=== PATIENT | female | born 1940 | race Caucasian/White ===

== ENCOUNTER 2024-01-02 18:13 | Emergency (ER) | payer SELFPAY ==
[2024-01-02 18:40] LABS: BASOPHILS PERCENT AUTO 0.1 % (0.0-1.0); EOSINOPHILS PERCENT AUTO 2.5 % (1.0-3.0); HEMATOCRIT 37.2 % (37.0-47.0); MEAN CORPUSCULAR HEMOGLOBIN 28.8 pg (27.0-34.0); MEAN CORPUSCULAR HGB CONC 32.3 g/dL (33.0-35.0); MEAN CORPUSCULAR VOLUME 89.2 fL (80-100); MONOCYTES PERCENT AUTO 11.1 % (2-8); NEUTROPHILS PERCENT AUTO 61.3 % (42.2-75.2); PLATELET COUNT,PLT 218 10^3/uL (150-450); RED BLOOD CELL COUNT 4.17 10^6/uL (4.2-5.4); WHITE BLOOD CELL COUNT,WBC 8.6 10^3/uL (5.0-10.0)
[2024-01-02] MEDS: Sodium Chloride 0.9% 1,000 ML IV ONE ×2 (18:47→21:10)
[2024-01-02 18:48] LABS: PROTHROMBIN TIME 10.3 SEC (9.0-12.0)
[2024-01-02 19:01] LABS: ALBUMIN 3.3 g/dL (3.4-5.0); ANION GAP 15.9 mEq/L (7-13); BILIRUBIN TOTAL 0.3 mg/dL (0.2-1.0); BUN/CREATININE RATIO 24.7 (No establ ref range); C-REACTIVE PROTEIN 0.62 ng/dL (<=0.50); CALCIUM 8.7 mg/dL (8.5-10.1); CREATININE 0.73 mg/dL (0.55-1.02); EST CRCL DRUG DOSING (CG) 55.62 mL/min; MAGNESIUM 1.6 mg/dL (1.8-2.4); POTASSIUM,K 2.9 mmol/L (3.5-5.1); PROTEIN TOTAL,TP 7.3 g/dL (6.4-8.2); TSH ULTRASENSITIVE 5.05 uIU/mL (0.36-3.74)
[2024-01-02 19:04] LABS: A/G RATIO 0.83
[2024-01-02 19:35] LABS: APPEARANCE,URINE CLEAR (CLEAR); BILIRUBIN,URINE NEGATIVE (NEGATIVE); COLOR,URINE YELLOW (YELLOW); GLUCOSE,URINE NEGATIVE (NEGATIVE); KETONES,URINE NEGATIVE (NEGATIVE); LEUKOCYTE ESTERASE,URINE SMALL (NEGATIVE); NITRITE,URINE NEGATIVE (NEGATIVE); OCCULT BLOOD,URINE SMALL (NEGATIVE); PROTEIN,URINE NEGATIVE (NEGATIVE); UROBILINOGEN,URINE 0.2 mg/dL (0.2-1.0)
[2024-01-02 19:42] LABS: BACTERIA,URINE MODERATE /HPF (0-FEW/HPF); EPITHELIAL CELLS,URINE FEW /HPF (NOT SEEN)
[2024-01-02] MEDS: Potassium Chloride 10 MEQ Tab.ER PO ONE (20:47)
[2024-01-02] MEDS: Diltiazem 25 MG/5 ML SDV IVPUSH ONE ×3 (21:08→23:32)
[2024-01-02] MEDS: cefTRIAXone 2 GM Vial IVPUSH ONE (21:19)
[2024-01-02] MEDS: Iopamidol 755 Mg/ML 100 ML Bottle IVPUSH ONE (21:41)
[2024-01-02] MEDS ORDERED: Potassium Chloride 10 MEQ Tab.ER ONE (21:48)
[2024-01-02] MEDS: Diltiazem 125 MG in Sodium Chloride 0.9% 100 ML IV SCH (22:37)
[2024-01-02] MEDS: Heparin Sodium/0.45% NaCl 25,000 UNITS/500 ML BAG IV SCH (22:38)
[2024-01-02] MEDS: Heparin Sodium 5,000 Units/ML Vial IVPUSH ONE ×2 (22:42→22:43)
[2024-01-02] MEDS ORDERED: Heparin Sodium 5,000 Units/ML Vial IVPUSH ONE ×2 (22:45)
== END 2024-01-02 23:45 ==
LOC: DL.ED 18:13
DX: I48.91 Unspecified atrial fibrillation (principal); R79.1 Abnormal coagulation profile
CPT/HCPCS: 36415; 80053; 81001; 83735; 84443; 84484; 85025; 85379; 85610; 85730; 86140; 87086; 87088; 87186; 93005; 93010; 93971; 96361; 96365; 96368; 96375; 96376; 99285; A9270; J0696; J1644; J3490; J7030